=== PATIENT | male | born 1985 | race Caucasian/White ===

== ENCOUNTER 2018-02-08 13:01 | Observation (INO) ==
--- NOTE | 2018-02-08 16:04 | Internal Med History&Physical ---
<Thi Rodarte - Last Filed: 02/08/18 16:15> Date of Encounter: 02/08/18 Time of Encounter: 16:01 Internal Medicine - H&P: HPI Chief complaint: Left flank pain Admitted From: Hospital to Hospital Transfer Plans for Post Hospital Care: Home History of present illness: Mr. HSIEH is a 33 year old male with past medical history of atrial fibrillation, kidney stone, anal fistula repair who presented to [facility] as a transfer from [facility] due to CT demonstrating kidney stone. The patient reported that Thursday he woke up at 2 o'clock in the morning due to left flank pain. The pain subsided and then returned and then subsided again. Then today he woke up at 7 AM and had the same severe left-sided flank pain. He was having nausea with dry heaves, sweating, hematuria, increased urinary frequency, difficulty urinating. He has noticed the hematuria for 4 days. He denied fever, shortness of breath, change in bowel movements, dysuria. His last kidney stone was when he was 17 years old and he passed it. His urologist is Dr. Lopez at [facility]. Of note, on y team here to cystoscopy by Dr. Lopez due to hematuria which demonstrated: "The anterior urethra is unremarkable. The prostate showed trilobar hyperplasia. Within the bladder there is no evidence of bladder tumor. There was a small bit of stone debris. There was 1+ trabeculations". Last month when he had the ablation he was noted to have hematuria so that they did a CT scan which demonstrated a left kidney stone and he was given 2 weeks of Flomax. He admits to smoking 1-15ppd/15yr. He denies current drug use or alcohol use. He has a full code. At [facility], abdominal CT demonstrated 4mm obstructive stone at the left distal ureter without any significant hydronephrosis. Colonic diverticulosis. Pancreas appeared normal. Initial vitals documented as 147/99, HR 66, RR 20, temperature 97, oxygen 98% on room air. WBC 6.1, hemoglobin 15.2, platelets 232, sodium 141, potassium 4.3, chloride 109, glucose 35, BUN 13, , cr eatinine 0.87. Lipase 254, alkaline phosphatase 53, AST 16, ALT 18, total bilirubin 0.8. INR 1.0, PT 11.4. The patient was given Dilaudid for pain. The urologist Dr. Terry Wynne was called and will see the patient. Past Med Surg Social Fam HX - Past Medical History Attestation: Yes The following information was validated with the patient. Source: patient Medical history: atrial fibrillation, GERD, hypertension, kidney stones Additional medical history: a-fib Psychiatric history: no psych history - Past Surgical History Surgical History: other Additional surgical history: anal fistula repair, cardiac ablation, hiatal hernia repair - Social History Smoking Status: Current every day smoker Smokeless Tobacco Status: No Alcohol use: none Drug use: none - Family History Father Hx Family Cardiac Disorders: Yes (Myocardial infarction) Internal Medicine - H&P: Meds Apixaban [Eliquis] 5 mg PO DAILY 01/26/18 [History] Dicyclomine Hcl [Bentyl] 20 mg PO QID 01/26/18 [History] Metoclopramide [Reglan] 5 mg PO QIDAC 01/26/18 [History] Metoprolol Tartrate 100 mg PO BID 01/26/18 [History] Propafenone HCl 300 mg PO Q8H 01/26/18 [History] Allergy/AdvReac Type Severity Reaction Status Date / Time ciprofloxacin [From Cipro] AdvReac Rash Verified 01/26/18 09:36 All Systems PM: A 10-system review of systems was performed and is negative for pertinent findings except as documented above in the HPI. - Constitutional Constitutional: excessive sweating, no chills, no fever(s) - EENT Eyes: no blurry vision, no change in vision - Cardiovascular Cardiovascular ROS IM: no edema, no lightheadedness, no palpitations, no syncope - Respiratory Respiratory: no cough, no dyspnea, no wheezing - Gastrointestinal Gastrointestinal: abdominal pain (Left lower quadrant), no change in bowel habits, no change in stool character, no nausea, no vomiting - Genitourinary Genitourinary ROS male: difficulty urinating, flank pain (Left flank pain), hematuria, urinary frequency, no dysuria, no genital pain, no urinary incontinence, no urinary urgency - Integumentary Integumentary IM: no erythema, no new lesions - Neurological Neurological ROS: no dizziness, no headache(s) - Constitutional General appearance: Present: A&O X 3, pleasant, no acute distress Exam: Alert and oriented - Head Head exam: Present: atraumatic, normal inspection - Eye Eye exam: Present: normal appearance. Absent: sclera anicteric - Respiratory Respiratory exam: Present: CTAB. Absent: rales, rhonchi, wheezes - Cardiovascular Cardiovascular exam: Present: RRR, +S1, +S2. Absent: systolic murmur - GI/Abdominal GI/Abdominal exam: Present: soft, tenderness (Left lower quadrant). Absent: distended, firm, guarding - Extremities Exam Extremities exam: Present: normal inspection. Absent: calf tenderness - Back Exam Back exam: Present: CVA tenderness (L), normal inspection - Neurological Exam Neurological exam: Present: alert, oriented X3, no focal deficits. Absent: pronater drift - Psychiatric Psychiatric exam: Present: normal affect, normal mood. Absent: agitated - Skin Skin exam: Present: dry, intact Internal Med - H&P Results - Labs CBC & Chem 7: 02/08/18 15:55 - Assessment and plan (1) Kidney stone on left side Current Visit: Yes Status: Acute Assessment and plan: Transferred from [facility] due to kidney stone. Patient is hemodynamically stable. Initial vitals at [place] were stable, afebrile, and the patient did not meet sepsis criteria. -Patient has history of kidney stone 17 years old and was able to pass on on without intervention. -Abdominal CT demonstrated 4mm obstructive stone at the left distal ureter without any significant hydronephrosis. Colonic diverticulosis. Pancreas appeared normal. -Initial labs at [place]: WBC 6.1, hemoglobin 15.2, platelets 232, creatinine 0.87, INR 1.0, PT 11.4. -Patient currently afebrile, not meeting sepsis criteria -Left CVA tenderness. Hematuria, increased urinary frequency, difficulty urinating. Plan: -The urologist Dr. Terry Wynne was called and will see the patient. -Started IV fluids rate 125 -started Flomax -NPO -Zofran PRN nausea -pain control with hydrocodone and acetaminophen, and not Toradol due to patient being on eliquis and having hematuria. -Repeat BMP in a.m. -monitor I&O, strain cap for urine -repeat CBC, CMP, lipase, UA pending (2) Atrial fibrillation Current Visit: Yes Status: Acute Assessment and plan: History of atrial fibrillation with ablation one month ago. On anticoagulation with eliquis. Rate controlled with metoprolol and rhythmal heart rate controlled Plan: -continue eliquis, metoprolol, and rhythmal due to high risk of blood clots due to recent ablation Qualifiers: Atrial fibrillation type: unspecified Qualified Code(s): I48.91 - Unspecified atrial fibrillation (3) DVT prophylaxis Current Visit: Yes Status: Acute Assessment and plan: On eliquis for afib (4) Elevated lipase Current Visit: Yes Status: Acute Assessment and plan: Elevated lipase. Patient denies drinking alcohol. No history of cholecystitis or family history of pancreatitis. Etiology undetermined Lipase 254, alkaline phosphatase 53, AST 16, ALT 18, total bilirubin 0.8. No epigastric pain on examination. Plan: -will repeat lipase, amylase, lipid panel in the a.m. -continue to monitor - Time Spent With Patient Total time spent is greater than 50% in coordination of care (as documented) at patient's floor/unit and/or counseling patient: <Fatoumata Marie - Last Filed: 02/08/18 16:54> Date of Encounter: 02/08/18 Internal Medicine - H&P: HPI History of present illness: Mr. HSIEH is a 33 year old male All Systems PM: A 10-system review of systems was performed and is negative for pertinent findings except as documented above in the HPI. Internal Med - H&P Results - Labs CBC & Chem 7: 02/08/18 15:55 02/08/18 15:55 Labs: Short CBC 02/08/18 Range/Units 15:55 WBC 8.1 (4.3-11.1) K/mcL Hgb 15.3 (12.9-16.9) g/dL Hct 45.2 (37.5-50.1) % Plt Count 232 (140-400) K/mcL Neutrophils # 4.5 (1.6-8.9) K/mcL BMP 02/08/18 15:55 Sodium 143 Potassium 3.9 Chloride 109 H Carbon Dioxide 26 BUN 11 Creatinine 0.77 Glucose 85 Calcium 9.4 Liver Function 02/08/18 Range/Units 15:55 Total Bilirubin 0.9 (0.3-1.0) mg/dL AST 15 (13-39) Units/L ALT 17 (7-52) Units/L Alkaline Phosphatase 55 (34-104) Units/L Albumin 4.5 (3.5-5.7) g/dL - Assessment and plan (1) Kidney stone on left side Current Visit: Yes Status: Acute (2) Atrial fibrillation Current Visit: Yes Status: Acute Qualifiers: Atrial fibrillation type: unspecified Qualified Code(s): I48.91 - Unspecified atrial fibrillation (3) DVT prophylaxis Current Visit: Yes Status: Acute (4) Elevated lipase Current Visit: Yes Status: Acute - Time Spent With Patient Total time spent is greater than 50% in coordination of care (as documented) at patient's floor/unit and/or counseling patient: - Attending Attestation I examined this patient and my medical decision-making was reviewed with the Resident Physician Dr Rodarte. I agree with the documented findings, disposition and treatment plan as described except to the extent set forth below. Mr Boucher ahs pmhx afib on ac s/p ablation almost one month ago, kidney stones, gerd, htn. presented as transfer for 4mm stone and further urology eval at [facility] [place]. found incidentally to have elevated lipase at OSH with repeat pending awake, comofrtable currently in bed. cont flank pain and nausea. noemesis. deneis fevers, chills. has had no episgastric pain/no mid back pain. denies hx etoh/etoh binging, gallstones, ruq pain or elevated tgs, no family history. updated to treatment plan on admit. gen- alert, awake,appears stated age eyes- pupils equal round , no scleral icterus cv- reg rate and rhythm, normal s1,s2, no murmurs appreciated lungs- ctabl, no wheezing, rhonchi or crackles abd- soft, tender LLQ, no epigastric tenderness, no guarding, non distended, + bs neuro- AAOx3 Left Nephrolithiasis- 4mm stone, urology eval pending, ivfs, pain control, flomax Incidental lipase elevation- repeat pending, IVFs, currently npo, ct scan report reviewed from [place], limited due to no contrast but pancreas noted to appear normal, check lipid panel, trend lipase, check amylase afib s/p ablation on AC- given high risk clot post ablation, cont aC, BB and rhythmol vte ppx - eliquis further diagnoses and treatment as documented by resident
[2018-02-08 16:11] LABS: Basophils % 0.4 %; Eosinophils # 0.2 K/mcL (0.0-0.6); Hematocrit 45.2 % (37.5-50.1); Hemoglobin 15.3 g/dL (12.9-16.9); Immature Granulocytes % 0.1 % (0-4); Lymphocytes # 2.6 K/mcL (0.6-4.6); Lymphocytes % 32.5 %; Mean Corpuscular HGB Conc 33.8 g/dL (31.6-35.5); Mean Corpuscular Hemoglobin 32.3 pg (28.0-33.3); Mean Corpuscular Volume 95.4 fL (83.0-100.0); Mean Platelet Volume 9.6 fL (9.4-12.4); Monocytes # 0.6 K/mcL (0.0-1.3); Monocytes % 7.8 %; Neutrophils # 4.5 K/mcL (1.6-8.9); Platelet Count 232 K/mcL (140-400); Red Blood Count 4.74 M/mcL (4.19-5.50); Segmented Neutrophils % 56.2 %
[2018-02-08] MEDS ORDERED: Naloxone 0.4 MG/ML INJ IVP PRN ×2 (16:12→20:17)
[2018-02-08] MEDS ORDERED: Ondansetron 4 MG/2 ML VIAL IVP PRN ×2 (16:13→20:17)
[2018-02-08] MEDS ORDERED: Acetaminophen 325 MG TABLET PO PRN ×2 (16:13→20:17)
[2018-02-08 16:22] LABS: INR 1.2; Prothrombin Time 13.7 Seconds (9.4-12.1)
[2018-02-08] MEDS ORDERED: *HR* HYDROcodone/Acet 5/325 mg TABLET PO PRN (16:28)
[2018-02-08] MEDS ORDERED: *HR* HYDROcodone/Acet 10/325 mg TABLET PO PRN (16:28)
[2018-02-08] MEDS ORDERED: 0.9 % Sodium Chloride 1,000 ML IVC SCH (16:30)
[2018-02-08 16:37] LABS: Alanine Aminotransferase 17 Units/L (7-52); Albumin 4.5 g/dL (3.5-5.7); Albumin/Globulin Ratio 1.8 (1.1-2.2); Alkaline Phosphatase 55 Units/L (34-104); Aspartate Amino Transferase 15 Units/L (13-39); BUN/Creatinine Ratio 14 (6-26); Bilirubin,Total 0.9 mg/dL (0.3-1.0); Blood Urea Nitrogen 11 mg/dL (6-20); Calcium 9.4 mg/dL (8.6-10.3); Carbon Dioxide 26 mEq/L (23-29); Chloride 109 mEq/L (98-107); Globulin 2.5 g/dL (2.4-3.5); Glucose 85 mg/dL (70-105); Magnesium 1.9 mg/dL (1.6-2.6); Osmolality,Calculated 295 (280-300); Potassium 3.9 mEq/L (3.5-5.1); Sodium 143 mEq/L (136-145); eGFR For Non-African Americans > 60 (> 60)
--- NOTE | 2018-02-08 17:11 | Urology - Consult Note ---
Date of Encounter: 02/08/18 Time of Encounter: 17:08 - Assessment and Plan (1) Kidney stone on left side Current Visit: Yes Status: Acute Assessment and plan: Outside facility reports 4 mm distal left ureteral calculus. Patient symptomatically with vomiting and intermittent hematuria. He is uncomfortable on exam. Discussed options for management. Plan: ureteroscopy with laser lithotripsy and stenting tonight. OK for DC to home post procedure. Urology CN:HPI Consult date: 02/08/18 Reason for consult Urology: Other (Left ureteral calculus) Requesting physician: Brie Em History of present illness: Very pleasant 33-year-old gentleman long-standing history of nephrolithiasis. Patient presented with severe pain nausea vomiting to outside facility where CT revealed a 4 mm distal left ureteral Calculus. Due to poor pain control and no urology coverage the patient was transferred here for further evaluation management. Patient continues with severe nausea. He is uncomfortable. Has no signs of sepsis. Past Med Surg Social Fam HX - Past Medical History Medical history: atrial fibrillation, GERD, hypertension, kidney stones Additional medical history: a-fib Psychiatric history: no psych history - Past Surgical History Surgical History: other Additional surgical history: anal fistula repair, cardiac ablation, hiatal hernia repair - Social History Smoking Status: Current every day smoker Smokeless Tobacco Status: No Alcohol use: none Drug use: none - Family History Father Hx Family Cardiac Disorders: Yes (Myocardial infarction) Medications and Allergies Apixaban [Eliquis] 5 mg PO DAILY 01/26/18 [History] Dicyclomine Hcl [Bentyl] 20 mg PO QID 01/26/18 [History] Metoclopramide [Reglan] 5 mg PO QIDAC 01/26/18 [History] Metoprolol Tartrate 100 mg PO BID 01/26/18 [History] Propafenone HCl 300 mg PO Q8H 01/26/18 [History] Allergy/AdvReac Type Severity Reaction Status Date / Time ciprofloxacin [From Cipro] AdvReac Rash Verified 01/26/18 09:36 Review of Systems - Constitutional no chills, no fever(s) - EENT Nose, mouth and throat: no dizziness, no headache(s) - Cardiovascular no chest pain, no diaphoresis - Respiratory no cough, no dyspnea - Gastrointestinal abdominal pain - Genitourinary hematuria, no dysuria - Musculoskeletal no muscle weakness, no numbness - Integumentary no lesions, no rash - Neurological no confusion, no sensory deficit - Psychiatric no anxiety, no confusion - Hematologic/Lymphatic no easy bleeding, no easy bruising - Allergic/Immunologic no throat swelling, no wheezing Exam - General physical appearance Present: well developed, well nourished, moderate distress - Eyes Present: normal ocular movement - ENT Present: normal mucosa, no hearing loss - Neck Present: trachea midline, no lymphadenopathy - Respiratory Present: normal respiratory effort - Cardiovascular Cardiovascular exam IM: RRR - Abdomen Abdomen: Present: soft, non tender. Absent: distended - Integumentary Present: no rash, no growths, no abnormal pigmentation - Neurologic Present: normal coordination Urology Results - Labs 02/08/18 15:55 02/08/18 15:55 Abnormal lab results PT 13.7 Seconds (9.4-12.1) H 02/08/18 15:55 Chloride 109 mEq/L (98-107) H 02/08/18 15:55 Diabetes panel 02/08/18 Range/Units 15:55 Sodium 143 (136-145) mEq/L Potassium 3.9 (3.5-5.1) mEq/L Chloride 109 H (98-107) mEq/L Carbon Dioxide 26 (23-29) mEq/L BUN 11 (6-20) mg/dL Creatinine 0.77 (0.70-1.30) mg/dL Glucose 85 (70-105) mg/dL Calcium 9.4 (8.6-10.3) mg/dL AST 15 (13-39) Units/L ALT 17 (7-52) Units/L Alkaline Phosphatase 55 (34-104) Units/L Albumin 4.5 (3.5-5.7) g/dL Calcium panel 02/08/18 Range/Units 15:55 Calcium 9.4 (8.6-10.3) mg/dL Albumin 4.5 (3.5-5.7) g/dL Pituitary panel 02/08/18 Range/Units 15:55 Sodium 143 (136-145) mEq/L Potassium 3.9 (3.5-5.1) mEq/L Chloride 109 H (98-107) mEq/L Carbon Dioxide 26 (23-29) mEq/L BUN 11 (6-20) mg/dL Creatinine 0.77 (0.70-1.30) mg/dL Glucose 85 (70-105) mg/dL Calcium 9.4 (8.6-10.3) mg/dL Adrenal panel 02/08/18 Range/Units 15:55 Sodium 143 (136-145) mEq/L Potassium 3.9 (3.5-5.1) mEq/L Chloride 109 H (98-107) mEq/L Carbon Dioxide 26 (23-29) mEq/L BUN 11 (6-20) mg/dL Creatinine 0.77 (0.70-1.30) mg/dL Glucose 85 (70-105) mg/dL Calcium 9.4 (8.6-10.3) mg/dL Total Bilirubin 0.9 (0.3-1.0) mg/dL AST 15 (13-39) Units/L ALT 17 (7-52) Units/L Alkaline Phosphatase 55 (34-104) Units/L Albumin 4.5 (3.5-5.7) g/dL All other labs normal. - Imaging CT scan - abdomen: report reviewed CT scan - pelvis: report reviewed Consult Discharge Plan - Plan Referrals: Naila Aguillon, BOND CLERK [Primary Care Provider] -
[2018-02-08] MEDS ORDERED: *HR* Propofol 200 MG/20 ML VIAL IVP ONE ×2 (17:21→18:43)
[2018-02-08] MEDS ORDERED: Ondansetron 4 MG/2 ML VIAL ONE ×2 (17:21→18:58)
[2018-02-08] MEDS ORDERED: *HR* Midazolam HCl 2 MG/2 ML VIAL ONE ×2 (17:21→18:43)
[2018-02-08] MEDS ORDERED: *HR* FentaNYL (PF) 100 MCG/2 ML VIAL ONE ×2 (17:21→18:43)
[2018-02-08] MEDS ORDERED: Lidocaine -MPF 2% 2 ML VIAL ONE (17:21)
[2018-02-08] MEDS ORDERED: Dexamethasone 4 MG/ML VIAL ONE ×2 (17:21→18:58)
--- NOTE | 2018-02-08 17:28 | Anesthesia Evaluation PreOp ---
Date of Encounter: 02/08/18 Time of Encounter: 17:35 - Past History Planned Operation: Left USE Laser Cystoscopy Cardiac History: Arrhythmia (AFib on metoprolol and Eliquis), Other (s/p Ablation) Pulmonary History: Smoker PRODUCTION GRADER History: Denies Any Significant HX Other Medical History: GERD Anesthesia History: No Prior Anesthetic Complications Alcohol Use: none Drug use: none Medications and Allergies Apixaban [Eliquis] 5 mg PO BID 01/26/18 [History] Dicyclomine Hcl [Bentyl] 20 mg PO QID 01/26/18 [History] Metoclopramide [Reglan] 5 mg PO QIDAC 01/26/18 [History] RX: Metoprolol Tartrate 100 mg PO BID 01/26/18 [History] RX: Propafenone HCl 300 mg PO Q8H 01/26/18 [History] Scopolamine Patch [Transderm-Scop] 1.5 mg TD ONCE PRN 02/08/18 [History] Tamsulosin HCl [Flomax] 0.4 mg PO DAILY 02/08/18 [History] Allergy/AdvReac Type Severity Reaction Status Date / Time ciprofloxacin [From Cipro] AdvReac Rash Verified 01/26/18 09:36 - Meds/Allergy Pre-op Review Medications Reviewed: Yes Allergies Reviewed: Yes Beta Blockers on Current Med List: Yes (on metoprolol today 0800) Anesthesia Results - Labs 02/08/18 15:55 02/08/18 15:55 Anesthesia Exam Height: 6'2 Weight: 220 lbs NPO (# of Hours): MN Pain Scale: 0 - HEENT Pupil (Motor): Pupils equal, EOMI Mallampati: II Teeth: Normal Oral Opening: Less than or equal to 3 - PRODUCTION GRADER LOC: Oriented PRODUCTION GRADER Motor: Normal RUE, Normal LUE, Normal RLE, Normal LLE, Normal Face PRODUCTION GRADER Sensory: Normal: RUE, LUE, RLE, LLE, Face - Cardiac Rhythm: Regular Murmur: None JVD: No Carotid Bruit: No - Pulmonary Breath Sounds: bilateral Clear Respiratory Effort: Symmetrical Anesthesia Assess/Plan ASA Score: 2 Level of consciousness: Cooperative Anesthetic Plan: General Autologous Blood: No Monitoring Plan: Standard Monitors Recovery Plan: PACU (Discussed GA, agrees to proceed)
[2018-02-08] MEDS ORDERED: Isovue-300 50 ML VIAL IVP ONE (17:33)
[2018-02-08] MEDS ORDERED: Albuterol 2.5 MG/3 ML NEBULIZER IH ONE (17:33)
[2018-02-08 17:50] LABS: Lipase 174 Units/L (11-82)
[2018-02-08] MEDS ORDERED: Famotidine 20 MG/2 ML VIAL ONE (18:14)
[2018-02-08] MEDS ORDERED: Acetaminophen IV 1,000 MG/100 ML INFUS..BTL ONE (18:14)
[2018-02-08] MEDS ORDERED: Water for inj. (sterile) 20 ML IV ONE (18:34)
[2018-02-08] MEDS ORDERED: Propofol 500 MG/50 ML INFUS..BTL ONE (18:44)
[2018-02-08] MEDS ORDERED: *HR* HYDROmorphone (PF) 1 MG/ML SYRINGE IVP PRN ×2 (18:49→20:17)
[2018-02-08] MEDS ORDERED: Ketorolac 30 MG/ML VIAL ONE (19:05)
--- NOTE | 2018-02-08 19:24 | Operative Note ---
Date of procedure: 02/08/18 Pre-op diagnosis: Left ureteral calculus, left flank pain, nausea Post-op diagnosis: same Procedure: Cystoscopy left retrograde ureteral pyelography with intraoperative interpretation of all radiographic images by surgeon in real time to facilitate procedure, left ureteroscopy, holmium laser lithotripsy, left double-J stent placement Implants: 6 x 26 left double-J stent Complications: None Anesthesia: GETA Surgeon: Terry Monsalve Was there an banking assistant present: No Estimated blood loss (cc): 2 Specimen: none Condition: stable Disposition: PACU Procedure in Detail: Very pleasant 33-year-old gentleman known to my partner Dr. Lopez for stone disease. Patient presented outside facility today severe flank pain and nausea. He is found have a 4 mm stone in the distal left ureter. Patient is tr ansferred here due to inability to control his pain at the outside facility. After discussion of risks benefits alternatives the patient looks for surgical address for which he now presents. The patient brought to the operating theater placed on table in supine position. The patient was identified by name date of and administered a general anesthetic. The patient was placed in modified dorsal lithotomy position for left rigid ureteroscopy. A cystoscope was inserted into the urethral meatus and advanced toward the bladder under direct visualization. There were no mucosal abnormalities of the urethra or bladder. An open-ended catheter was placed up against the left ureteral orifice and with gentle injection of contrast a left retrograde ureteropyelogram was performed. Intraoperative interpretation of radial graphic images revealed the following findings on pyelography: Small filling defect in the distal ureter consistent with stone noted on CT. No proximal hydroureteronephrosis. Normal renal collecting system. No other suspicious abnormalities were identified. Based on the above findings ureteroscopy was indicated. Also under fluoroscopic guidance a left Glidewire was advanced in the renal pelvis. Alongside the Glidewire a rigid ureteroscope was advanced. With placement of a Glidewire and irrigation scope the left ureteral stone migrated into the proximal ureter were was encountered just before the ureteropelvic junction. There a second port in the ureteroscope we have asked a stone basket to grasp the stone and brought it toward the mid ureter were removed the fragment the stone while in the basket using the 365 holmium laser fiber setting of 0.8 and 8. Once the was adequately addressed all instruments except for the existing Glidewire were removed and the patient's bladder. At this point under fluoroscopic guidance a 6 x 26 double-J stent was advanced. Once the stent was felt in good position the Glidewire was removed. Real-time fluoroscopic images confirmed a curled stent in the left renal pelvis and a curl in the bladder. This ended the operative procedure.
--- NOTE | 2018-02-08 20:00 | Anesthesia Evaluation Post Op ---
Date of Encounter: 02/08/18 Time of Encounter: 19:58 - Vital Signs Vital Signs: Vital Signs Temp Pulse Resp BP Pulse Ox 02/08/18 19:54 98.3 F 59 16 127/86 96 02/08/18 19:45 98.3 F 57 16 120/91 95 02/08/18 19:35 98.3 F 54 12 114/68 100 02/08/18 19:25 98.3 F 61 12 107/65 99 - Airway Airway: Non-obstructed - Cardiovascular Regular Rate - Mental Status Mental Status: Alert & Oriented, Answers Appropriately - Pain Pain Scale: 3 Pain Scale used: Numeric (1 - 10) - Nausea Vomiting Nausea Vomiting: Not Present - Hydration Hydration: Tolerates oral liquids, Has not voided - Discharge PostOp Status: Transfer Patient to floor Anes Supervising Prov Stmt: PT seen/evaluated, VSS and has met criteria for discharge to floor. - MD Aidan
[2018-02-08] MEDS: *HR* HYDROcodone/Acet 10/325 mg TABLET PO PRN (20:44)
[2018-02-08] MEDS: Metoprolol 100 MG TABLET PO SCH (20:44)
[2018-02-08] MEDS: 0.9 % Sodium Chloride 1,000 ML IVC SCH (20:45)
[2018-02-08] MEDS ORDERED: Metoprolol 100 MG TABLET PO SCH (21:00)
[2018-02-08] MEDS: Nicotine 14 MG PATCH.TD24 TD SCH (21:39)
[2018-02-08] MEDS: *HR* HYDROcodone/Acet 5/325 mg TABLET PO PRN (22:06)
[2018-02-09] MEDS: *HR* HYDROcodone/Acet 5/325 mg TABLET PO PRN ×2 (03:10→10:23)
[2018-02-09] MEDS: *HR* HYDROcodone/Acet 10/325 mg TABLET PO PRN (04:05)
[2018-02-09] MEDS: 0.9 % Sodium Chloride 1,000 ML IVC SCH (04:06)
[2018-02-09 04:09] LABS: Hematocrit 41.8 % (37.5-50.1); Hemoglobin 14.1 g/dL (12.9-16.9); Immature Granulocytes % 0.3 % (0-4); Lymphocytes # 0.8 K/mcL (0.6-4.6); Lymphocytes % 13.8 %; Mean Corpuscular HGB Conc 33.7 g/dL (31.6-35.5); Mean Corpuscular Hemoglobin 32.2 pg (28.0-33.3); Mean Corpuscular Volume 95.4 fL (83.0-100.0); Mean Platelet Volume 9.8 fL (9.4-12.4); Monocytes % 0.7 %; Neutrophils # 4.9 K/mcL (1.6-8.9); Platelet Count 220 K/mcL (140-400); Red Blood Count 4.38 M/mcL (4.19-5.50); Red Cell Distribution Width 12.5 % (11.5-14.5); Segmented Neutrophils % 85.2 %
[2018-02-09 04:18] LABS: INR 1.1; Prothrombin Time 12.5 Seconds (9.4-12.1)
[2018-02-09 04:31] LABS: Chol/HDL Ratio 3.9 (0-4.9)
[2018-02-09 04:32] LABS: BUN/Creatinine Ratio 17 (6-26); Blood Urea Nitrogen 14 mg/dL (6-20); Calcium 9.4 mg/dL (8.6-10.3); Carbon Dioxide 22 mEq/L (23-29); Chloride 109 mEq/L (98-107); Glucose 143 mg/dL (70-105); Lipase 18 Units/L (11-82); Osmolality,Calculated 287 (280-300); Potassium 4.4 mEq/L (3.5-5.1); Sodium 137 mEq/L (136-145); eGFR For Non-African Americans > 60 (> 60)
[2018-02-09 06:07] LABS: Bilirubin,Urine Negative (Negative); Blood,Urine Large (Negative); Color,Urine Red (Yellow); Glucose,Urine (UA) Normal (Normal); Ketones,Urine Negative (Negative); Leukocyte Esterase,Urine Small (Negative); Nitrite,Urine Negative (Negative); Protein,Urine >=300 mg/dL (Neg-Trace); Specific Gravity,Urine 1.017 (1.010-1.025); Urobilinogen,Urine Normal (Normal)
[2018-02-09 06:08] LABS: Clarity,Urine Turbid (Clear)
[2018-02-09] MEDS ORDERED: Ondansetron 4 MG/2 ML VIAL IVP ONE (06:24)
[2018-02-09 07:24] VITALS: BP 113/67
--- NOTE | 2018-02-09 08:57 | Discharge Summary ---
<Thi Rodarte - Last Filed: 02/09/18 09:09> - NOTES TO OUTPATIENT PROVIDER Notes to Outpatient Provider: Patient had a 4mm obstructing left ureteral stone that urology for formed a cystoscopy with lithotripsy and ureteral stent placement. He is to follow up with urology outpatient. He was given pyridium, oxybutynin, pain medication on discharge. Orders not resulted at time of discharge: Pending orders 02/09/18 05:35 Culture,Urine [RM] Stat Date of Encounter: 02/09/18 Time of Encounter: 08:56 - Discharge Diagnosis (1) Kidney stone on left side Priority: Primary Status: Acute (2) Atrial fibrillation Priority: Secondary Status: Acute Qualifiers: Atrial fibrillation type: unspecified Qualified Code(s): I48.91 - Unspecified atrial fibrillation (3) DVT prophylaxis Priority: Secondary Status: Acute (4) Elevated lipase Priority: Secondary Status: Acute Hospital course: Mr. HANNAH is a 33 year old male with past medical history of atrial fibrillation, kidney stone, anal fistula repair who presented to [facility] as a transfer from [facility] due to CT demonstrating kidney stone. The patient reported that Thursday he woke up at 2 o'clock in the morning due to left flank pain. The pain subsided and then returned and then subsided again. Then today he woke up at 7 AM and had the same severe left-sided flank pain. He was having nausea with dry heaves, sweating, hematuria, increased urinary frequency, difficulty urinating. He has noticed the hematuria for 4 days. He denied fever, shortness of breath, change in bowel movements, dysuria. His last kidney stone was when he was 17 years old and he passed it. His urologist is Dr. Lopez at [facility]. Of note, on y team here to cystoscopy by Dr. Lopez due to hematuria which demonstrated: "The anterior urethra is unremarkable. The prostate showed trilobar hyperplasia. Within the bladder there is no evidence of bladder tumor. There was a small bit of stone debris. There was 1+ trabeculations". Last month when he had the ablation he was noted to have hematuria so that they did a CT scan which demonstrated a left kidney stone and he was given 2 weeks of Flomax. At [facility], abdominal CT demonstrated 4mm obstructive stone at the left distal ureter without any significant hydronephrosis. Colonic diverticulosis. Pancreas appeared normal. The urologist Dr. Terry Monsalve evaluated the patient and the patient to the OR for Cystoscopy left retrograde ureteral pyelography with intraoperative interpretation of all radiographic images by surgeon in real time to facilitate procedure, left ureteroscopy, holmium laser lithotripsy, left double-J stent placement. The patient tolerated the procedure well despite having continued left CVA tenderness and groin tenderness. On discharge she was hemodynamically stable and no acute distress. He was given a prescription for pain medication, oxybutynin, pyridium, Zofran. He has an appointment set up to follow up with urology outpatient. He was notified that he does not need to get the CT of his abdomen and pelvis anymore since he is had the procedure. He is to follow up with his PCP in a week or 2. He is to return to the hospital should he develop fever, chills, worsening back pain. He stated clear understanding of the treatment plan. Discharge discussed with: patient, nurse Time spent discussing smoking cessation with patient: more than 10 minutes - Time Spent with Patient Total time spent providing and/or coordinating discharge services: Greater than 30 minutes - Discharge Medications Prescriptions: RX: HYDROcodone/Acet 5/325 mg [Barney 5-325 mg] 1 tab PO Q4HR PRN 3 Days #12 tablet PRN Reason: Moderate Pain Ondansetron ODT [Zofran ODT] 4 mg SL Q4HR PRN #28 tab.rapdis PRN Reason: Nausea And Vomiting RX: Oxybutynin Chloride [Ditropan Xl] 10 mg PO DAILY PRN #14 tab.er.24 PRN Reason: Spasms RX: Phenazopyridine [Pyridium] 200 mg PO TID PRN #21 tablet PRN Reason: bladder spasm pain Home Medications: RX: Apixaban [Eliquis] 5 mg PO BID 01/26/18 [History] RX: Dicyclomine Hcl [Bentyl] 20 mg PO QID 01/26/18 [History] RX: Metoclopramide [Reglan] 5 mg PO QIDAC 01/26/18 [History] RX: Metoprolol Tartrate 100 mg PO BID 01/26/18 [History] RX: Propafenone HCl 300 mg PO Q8H 01/26/18 [History] RX: Scopolamine Patch [Transderm-Scop] 1.5 mg TD ONCE PRN 02/08/18 [History] RX: Tamsulosin HCl [Flomax] 0.4 mg PO DAILY 02/08/18 [History] Ondansetron ODT [Zofran ODT] 4 mg SL Q4HR PRN #28 tab.rapdis 02/09/18 [Rx] RX: HYDROcodone/Acet 5/325 mg [Barney 5-325 mg] 1 tab PO Q4HR PRN 3 Days #12 tablet 02/09/18 [Rx] RX: Oxybutynin Chloride [Ditropan Xl] 10 mg PO DAILY PRN #14 tab.er.24 02/09/18 [Rx] RX: Phenazopyridine [Pyridium] 200 mg PO TID PRN #21 tablet 02/09/18 [Rx] Allergies/Adverse Reactions: Allergy/AdvReac Type Severity Reaction Status Date / Time ciprofloxacin [From Cipro] AdvReac Rash Verified 01/26/18 09:36 Date of admission: 02/08/18 15:00 Primary care physician: RAY Austin Consults: 02/08/18 16:14 Consult to Urology [CONS] Routine Consulting Provider: Urology Sravanthi Reason for Consult: 4mm stone obstructing left ureter Call Completed: Yes Discharging clinician: Mauricio Bansal Anticipated date of discharge: 02/09/18 - Constitutional Vitals: Temp Pulse Resp BP Pulse Ox 98 F 54 16 113/67 99 02/09/18 07:21 02/09/18 07:21 02/09/18 07:21 02/09/18 07:21 02/09/18 07:51 General appearance: Present: A&O X 3, pleasant, no acute distress Exam: Gen.: Vitals noted. No acute distress. AAOx3 HEENT: oropharynx clear, Normocephalic, atraumatic Neck: Supple. No adenopathy. Cardiac: RRR, no murmur, +S1/S2 Pulmonary: CTA bilaterally, no wheezes, rales or rhonchi, equal chest expansion Abdomen: soft, left lower quadrant tender, Bowel sounds noted, no guarding Back: left CVA tenderness Extremities: no BLE edema, nontender calf, no cyanosis or clubbing Neuro: A&Ox3, moves all extremities, no focal deficits Psych: Appropriate mood and behavior - Patient Status Disposition: Home, Self-Care Functional capacity at discharge: independent ambulation Overall status at discharge: patient is back to baseline - Discharge Instructions Instructions: Atrial Fibrillation (DC) Follow Up With: Tanvir Lopez MD [Partnered Physician] - 02/18/18 10:45 am Additional Instructions: Take as needed the pain medication, Zofran for nausea, oxybutynin and pyridium for burning with urination Follow-up with the urologist at your upcoming appointments Follow-up with your family physician in about a week or 2 Return to the hospital should you develop fever, chills, worsened back pain Urology confirmed you do not need to get the CT scan on 02/16/2018. - Diet and Activity Activity: resume usual activities as tolerated Diet: advance to your usual diet <Mauricio Bansal - Last Filed: 02/09/18 19:43> Orders not resulted at time of discharge: Pending orders 02/09/18 05:35 Culture,Urine [RM] Stat Date of Encounter: 02/09/18 - Discharge Diagnosis (1) Kidney stone on left side Status: Acute (2) Atrial fibrillation Status: Chronic Qualifiers: Atrial fibrillation type: paroxysmal Qualified Code(s): I48.0 - Paroxysmal atrial fibrillation (3) DVT prophylaxis Status: Acute (4) Elevated lipase Status: Resolved (5) Tobacco abuse Priority: Secondary Status: Chronic Hospital course: Mr. HANNAH is a 33 year old male - Time Spent with Patient Total time spent providing and/or coordinating discharge services: Date of admission: 02/08/18 15:00 Primary care physician: RAY Austin Consults: 02/08/18 16:14 Consult to Urology [CONS] Routine Consulting Provider: Urology Sravanthi Reason for Consult: 4mm stone obstructing left ureter Call Completed: Yes - Constitutional Vitals: Temp Pulse Resp BP Pulse Ox 98 F 54 16 113/67 99 02/09/18 07:21 02/09/18 07:21 02/09/18 07:21 02/09/18 07:21 02/09/18 07:51 - Attending Attestation I examined this patient and my medical decision-making was reviewed with the Resident Physician on 02/09/18. I agree with the documented findings, disposition and treatment plan as described except to the extent set forth below. Mr Hannah has been in observation for obstructive uropathy. He is s/p stent. He is having some pain with urination and antispasmodics started. He is now afebrile and ready for discharge home. Exam alert Comfortable Mucus membranes dry Heart not tachy No wheeze abd soft Plan D/C home today.
[2018-02-09] MEDS ORDERED: Apixaban 5 MG TABLET PO SCH ×2 (09:00)
--- NOTE | 2018-02-09 09:21 | Urology Progress Note ---
Date of Encounter: 02/09/18 Time of Encounter: 08:40 - Assessment and Plan (1) Kidney stone on left side Current Visit: Yes Status: Acute Assessment and plan: Patient is a 33-year-old male who presents one day postoperatively from cystoscopy left retrograde ureteral pyelography, left ureteroscopy, holmium laser lithotripsy, left double-J stent placement. Patient is recovering well postoperatively. Discussed expectations with ureteral stents. Plan to follow up in 1-2 weeks for cystoscopy and ureteral stent removal. Discussed pain management with primary team and suggested pyridium and oxybutynin for ureteral spasm. Progress Note Narrative: POD #1. Patient seen and examined sitting upright in bed eating breakfast in apparent distress. Patient is voiding without difficulty. Patient describes some stent discomfort bladder spasms. Patient denies fever, chills, chest pain, dyspnea. Objective Initial Vital Signs Temp Pulse Resp BP Pulse Ox 98.3 F 61 12 107/65 99 02/08/18 19:25 02/08/18 19:25 02/08/18 19:25 02/08/18 19:25 02/08/18 19:25 - General physical appearance Present: well developed, no distress, moderate pain - Respiratory Present: normal expansion, normal respiratory effort - Abdomen Present: soft, non tender - Integumentary Present: no rash, no abnormal pigmentation - Musculoskeletal Present: normal posture - Psychiatric Present: oriented to time, oriented to person, oriented to place, memory intact - Labs 02/09/18 03:42 02/09/18 03:42 Diabetes panel 02/08/18 02/09/18 02/09/18 Range/Units 15:55 03:42 03:42 Sodium 143 137 (136-145) mEq/L Potassium 3.9 4.4 (3.5-5.1) mEq/L Chloride 109 H 109 H (98-107) mEq/L Carbon Dioxide 26 22 L (23-29) mEq/L BUN 11 14 (6-20) mg/dL Creatinine 0.77 0.84 (0.70-1.30) mg/dL Glucose 85 143 H (70-105) mg/dL Calcium 9.4 9.4 (8.6-10.3) mg/dL AST 15 (13-39) Units/L ALT 17 (7-52) Units/L Alkaline Phosphatase 55 (34-104) Units/L Albumin 4.5 (3.5-5.7) g/dL Triglycerides 73 (< 150) mg/dL HDL Cholesterol 46 (40-59) mg/dL Calcium panel 02/08/18 02/09/18 Range/Units 15:55 03:42 Calcium 9.4 9.4 (8.6-10.3) mg/dL Albumin 4.5 (3.5-5.7) g/dL Pituitary panel 02/08/18 02/09/18 Range/Units 15:55 03:42 Sodium 143 137 (136-145) mEq/L Potassium 3.9 4.4 (3.5-5.1) mEq/L Chloride 109 H 109 H (98-107) mEq/L Carbon Dioxide 26 22 L (23-29) mEq/L BUN 11 14 (6-20) mg/dL Creatinine 0.77 0.84 (0.70-1.30) mg/dL Glucose 85 143 H (70-105) mg/dL Calcium 9.4 9.4 (8.6-10.3) mg/dL Adrenal panel 02/08/18 02/09/18 Range/Units 15:55 03:42 Sodium 143 137 (136-145) mEq/L Potassium 3.9 4.4 (3.5-5.1) mEq/L Chloride 109 H 109 H (98-107) mEq/L Carbon Dioxide 26 22 L (23-29) mEq/L BUN 11 14 (6-20) mg/dL Creatinine 0.77 0.84 (0.70-1.30) mg/dL Glucose 85 143 H (70-105) mg/dL Calcium 9.4 9.4 (8.6-10.3) mg/dL Total Bilirubin 0.9 (0.3-1.0) mg/dL AST 15 (13-39) Units/L ALT 17 (7-52) Units/L Alkaline Phosphatase 55 (34-104) Units/L Albumin 4.5 (3.5-5.7) g/dL Consult Discharge Plan - Plan Additional Instructions: Take as needed the pain medication, Zofran for nausea, oxybutynin and pyridium for burning with urination Follow-up with the urologist at your upcoming appointments Follow-up with your family physician in about a week or 2 Return to the hospital should you develop fever, chills, worsened back pain Urology confirmed you do not need to get the CT scan on 02/16/2018. Referrals: Naial Aguillon, KARI [Primary Care Provider] - Terry Monsalve [Partnered Physician] - Prescriptions: HYDROcodone/Acet 5/325 mg [Thornton 5-325 mg] 1 tab PO Q4HR PRN 3 Days #12 tablet PRN Reason: Moderate Pain Ondansetron ODT [Zofran ODT] 4 mg SL Q4HR PRN #28 tab.rapdis PRN Reason: Nausea And Vomiting Oxybutynin Chloride [Ditropan Xl] 10 mg PO DAILY PRN #14 tab.er.24 PRN Reason: Spasms Phenazopyridine [Pyridium] 200 mg PO TID PRN #21 tablet PRN Reason: bladder spasm pain
[2018-02-09] MEDS: Metoprolol 100 MG TABLET PO SCH (10:22)
[2018-02-09] MEDS: Nicotine 14 MG PATCH.TD24 TD SCH (10:24)
== END 2018-02-09 10:40 | disposition home or self-care (01) ==
LOC: 3ANU → SUATTDRO 15:00
PROVIDERS: ADMIT Internal Medicine Cardiovascular Disease; ATTEND Internal Medicine